=== PATIENT | male | born 1980 | race Caucasian/White ===

== ENCOUNTER 2021-05-12 12:02 | Emergency (ER) | payer OTHER ==
[~2021-05-12] VITALS: Ht 170.2 cm; Wt 68.0 kg
[2021-05-12] MEDS ORDERED: VIMPAT100 MG PO (13:21)
[2021-05-12] MEDS ORDERED: ELIQUIS5 MG PO (15:41)
[2021-05-12] MEDS ORDERED: LIDODERM1 EACH TD (15:43)
[2021-05-12] MEDS ORDERED: GABAPENTIN250 MG/5 M PO (15:43)
[2021-05-12] MEDS ORDERED: MELATONIN3 MG PO (15:44)
[2021-05-12] MEDS ORDERED: NICOTINE PATCH1 EACH TD (15:45)
[2021-05-12] MEDS ORDERED: MIRALAX17 GM PO (15:46)
[2021-05-12] MEDS ORDERED: SENNA-DOCUSATE1 EAC1 PO (15:47)
== END 2021-05-12 13:28 | disposition home or self-care (01) ==
LOC: ED 12:02
DX: R56.9 Unspecified convulsions (principal)
CPT/HCPCS: 99284